=== PATIENT | female | born 1945 | race Caucasian/White ===

== ENCOUNTER 2025-07-18 22:07 | Observation (INO) | payer MEDICARE ==
[2025-07-19] MEDS ORDERED: Calcium Carbonate 500 MG ChewTAB PO PRN (01:03)
[2025-07-19] MEDS ORDERED: Ondansetron PF 4 MG/2 ML Vial IVP PRN (01:03)
[2025-07-19] MEDS ORDERED: Acetaminophen 325 MG TAB PO PRN (01:03)
[2025-07-19] MEDS ORDERED: Electrolyte Replacement Protocol 1 EACH FS SCH (01:15)
[2025-07-19] MEDS ORDERED: PHOS-NAK 1 PKT PACK PO PRN (01:30)
[2025-07-19] MEDS ORDERED: Magnesium 2 GM/50 ML(in water) 2 GM in Premix 1 BAG IVPB PRN (01:30)
[2025-07-19] MEDS ORDERED: Potassium Chloride 20 MEQ in Premix 1 BAG IVPB PRN (01:30)
[2025-07-19 02:54] LABS: Hematocrit 33.8 % (36.0-47.0); Hemoglobin 10.6 g/dL (12.0-16.0); Mean Corpuscular Hemoglobin 26.1 pg (27.0-31.0); Mean Corpuscular Volume 83.3 fL (78.0-98.0); Platelet Count 74 10x3/uL (130-400); Red Blood Cell (RBC) Count 4.06 mill/uL (4.20-5.40); White Blood Cell (WBC) Count 7.51 10x3/uL (4.8-10.8)
[2025-07-19 03:25] LABS: Anisocytosis SLIGHT = 6-15 cells HPF (0-5); Platelet Adequacy Comment Platelets Decreased; Polychromasia SLIGHT = 2-3 cells HPF (0-2); Smudge Cells 55.4 %
[2025-07-19 05:10] LABS: ALT (SGPT) 11 U/L (Less than 34); AST (SGOT) 28 U/L (11-34); Albumin 3.6 g/dL (3.1-4.5); Alkaline Phosphatase 56 U/L (40-110); Anion Gap 12 mmol/L (10-20); BUN (Urea Nitrogen) 18 mg/dL (9.8-20.1); Bilirubin, Total 0.2 mg/dL (0.3-1.2); Calc. Creatinine Clearance 0 mL/min (70-130); Calcium 9.0 mg/dL (7.8-10.44); Carbon Dioxide 25 mmol/L (23-31); Chloride 106 mmol/L (98-107); Globulin 5.6 g/dL (2.4-3.5); Glucose 83 mg/dL (83-110); Magnesium 2.1 mg/dL (1.6-2.6); Potassium 3.9 mmol/L (3.5-5.1); Sodium 139 mmol/L (136-145)
[2025-07-19 05:13] VITALS: BMI 21.6
[2025-07-19] MEDS: Aspirin Chewable 81 MG TAB PO SCH (10:16)
[2025-07-19 15:35] VITALS: BP 125/67; TEMP 97.8
[2025-07-20] MEDS ORDERED: FLU (Fluad Triv) 25-26 (65UP)PF 45 MCG/0.5 ML Syringe IM ONE (09:00)
[2025-07-20] MEDS ORDERED: PNEUMOC 20-VAL CONJ-DIP CRM/PF 0.5 ML SYRINGE IM ONE (09:00)
== END 2025-07-19 15:40 | disposition home or self-care (01) ==
LOC: 2NO 23:52
PROVIDERS: ADMIT Student in an Organized Health Care Education/Training Program; ATTEND Internal Medicine
DX: R06.02 Shortness of breath (principal); F03.90 Unspecified dementia, unspecified severity, without behavioral disturbance, psychotic disturbance, mood disturbance, and anxiety; D69.6 Thrombocytopenia, unspecified; R79.89 Other specified abnormal findings of blood chemistry; I10 Essential (primary) hypertension; E03.9 Hypothyroidism, unspecified; Z79.890 Hormone replacement therapy; Z79.82 Long term (current) use of aspirin; Z79.899 Other long term (current) drug therapy; Z91.041 Radiographic dye allergy status; Z87.891 Personal history of nicotine dependence
CPT/HCPCS: 80053; 83735; 83880; 84484 ×2; 85025; G0378; 36415